=== PATIENT | male | born 1940 | race Caucasian/White ===

== ENCOUNTER 2016-11-13 10:46 | Emergency (ER) | payer OTHER ==
[~2016-11-13] VITALS: Ht 170.2 cm; Wt 83.0 kg
[2016-11-13] MEDS ORDERED: ATOR40TA28 PO (11:18)
[2016-11-13] MEDS ORDERED: INSLAN SQ (11:18)
[2016-11-13] MEDS ORDERED: HYDR25TA PO (11:18)
[2016-11-13] MEDS ORDERED: METF500T7 PO (11:18)
[2016-11-13] MEDS ORDERED: CARV6 PO (11:18)
[2016-11-13] MEDS ORDERED: LOSA50TA37 PO (11:18)
[2016-11-13] MEDS ORDERED: FINA5TAB41 PO (11:18)
[2016-11-13] MEDS ORDERED: ASPI-1093 PO (11:18)
[2016-11-13 11:27] LABS: GLUCOSE COMMENT 1 Repeated; GLUCOSE,POINT OF CARE 114 MG/DL (70-110)
[2016-11-13 11:36] LABS: BASOPHILS # (AUTO) 0.04 K/uL (0.00-0.20); BASOPHILS % (AUTO) 0.4 % (0.0-2.0); EOSINOPHILS # (AUTO) 0.22 K/uL (0.00-0.70); HEMATOCRIT 47.8 % (41-53); LYMPHOCYTES # (AUTO) 1.5 K/uL (1.0-4.8); LYMPHOCYTES % (AUTO) 14.4 % (22.0-44.0); MEAN CORPUSCULAR HEMOGLOBIN 30.5 pg (26.0-34.0); MEAN CORPUSCULAR HGB CONC 33.5 G/dL (31.0-37.0); MEAN CORPUSCULAR VOLUME 91 fL (80-100); MONOCYTES # (AUTO) 0.7 K/uL (0.1-1.0); MONOCYTES % (AUTO) 6.7 % (2.0-9.0); NEUTROPHILS % (AUTO) 76.5 % (40.0-70.0); PLATELET COUNT (AUTO) 167 K/uL (150-450); RED BLOOD CELL COUNT(AUTO) 5.25 MIL/uL (4.50-5.90); RED CELL DISTRIBUTION WIDTH 13.5 % (11.5-14.5); WHITE BLOOD COUNT (AUTO) 10.5 K/uL (4.5-11.0)
[2016-11-13 11:48] LABS: CREATININE 1.19 mg/dL (0.60-1.30); POTASSIUM 3.6 mmol/L (3.5-5.1)
[2016-11-13 11:53] LABS: ALBUMIN 3.7 g/dL (3.4-5.0); BILIRUBIN,TOTAL 0.6 mg/dL (0.1-1.0); TOTAL PROTEIN, SERUM 7.5 g/dL (6.4-8.2)
[2016-11-13 12:35] LABS: APPEARANCE,URINE CLEAR (CLEAR); GLUCOSE, URINE (UA) 500 mg/dL (NEGATIVE); KETONES,URINE NEGATIVE (NEGATIVE); LEUKOCYTE ESTERASE ,URINE NEGATIVE (NEGATIVE); OCCULT BLOOD,URINE NEGATIVE (NEGATIVE); PH,URINE 5.5 (5.0-8.0); PROTEIN,URINE NEGATIVE (NEGATIVE)
[2016-11-13 12:37] LABS: ADD UA MICROSCOPIC YES
[2016-11-13 12:42] LABS: RBC,URINE 0-2 /HPF (0-2); SQUAMOUS EPITHELIAL CELL,UR Few /LPF (None Seen); WBC,URINE 0-2 /HPF (0-5)
[2016-11-13 13:17] LABS: GLUCOSE,POINT OF CARE 153 MG/DL (70-110)
[2016-11-13 14:56] VITALS: BP 137/81
[2016-11-13 15:01] LABS: GLUCOSE,POINT OF CARE 142 MG/DL (70-110)
== END 2016-11-13 15:18 | disposition home or self-care (01) ==
LOC: EMS 10:47
DX: E11.649 Type 2 diabetes mellitus with hypoglycemia without coma (principal); T38.3X5A Adverse effect of insulin and oral hypoglycemic [antidiabetic] drugs, initial encounter; I10 Essential (primary) hypertension; Z79.4 Long term (current) use of insulin; Z79.82 Long term (current) use of aspirin; Y92.89 Other specified places as the place of occurrence of the external cause
CPT/HCPCS: 82962; 99284